=== PATIENT | female | born 1970 | race Caucasian/White ===

== ENCOUNTER 2016-08-01 15:47 | Emergency (ER) | payer MEDICAID ==
[~2016-08-01] VITALS: Ht 157.5 cm; Wt 103.3 kg
[~2016-08-01 15:47] MED LIST: GEMF600T60 PO; GLIP10TA95 PO; HUM100VI8 SQ; HYDR-3498 PO; QUIN10TA PO
[2016-08-01 15:51] VITALS: Ht 157.5 cm; Wt 103.3 kg
[2016-08-01] MEDS ORDERED: SOD CHLORIDE 0.9% 1,000 ML IV STA (19:26)
--- NOTE | 2016-08-01 19:28 | ERD ---
ER Documentation Chief Complaint Date/Time DATE: 08/01/16 TIME: 19:27 Chief Complaint cp started last night HPI 46-year-old female ambulatory to the ED complaining of acute onset of moderate to severe, epigastric and right upper quadrant pain that radiates up to the chest. Pain began last night. Mild nausea but no vomiting, diarrhea or constipation. No hematemesis, hematochezia or melanotic stools. No shortness of breath or cough. Denies leg pain or swelling. No relieving or exacerbating factors. No fevers or chills. Discrepancy with the triage note addressed. ROS All systems reviewed and are negative except as per history of present illness. Medications Home Meds Reported Medications Atorvastatin Calcium* (Atorvastatin Calcium*) 20 Mg Tablet, 20 MG PO DAILY, #30 TAB 08/01/16 Glimepiride* (Glimepiride*) 4 Mg Tablet, 4 MG PO WITH BREAKFAST, TAB 08/01/16 Lisinopril* (Lisinopril*) 40 Mg Tablet, 40 MG PO DAILY, #30 TAB 08/01/16 Hum Insulin Nph/Reg Insulin Hm (Humulin 70-30 Vial) 100 Units/Ml Vial, 40 UNITS SQ BID, VIAL 02/08/15 Discontinued Reported Medications Gemfibrozil* (Gemfibrozil*) 600 Mg Tablet, 600 MG PO BID, TAB 02/08/15 Glipizide* (Glucotrol*) 10 Mg Tablet, 20 MG PO BID TAKE BEFORE BREAKFAST AND LUNCH 12/30/12 Quinapril Hcl (Accupril) 10 Mg Tablet, 10 MG PO DAILY 12/30/12 Discontinued Scripts Hydrocodone Bit-Acetaminophen* (Carney*) 5-325 Mg Tab, 1 TAB PO Q6 Y for PAIN, # 4 TAB Prov:DAYA KRISHNA MD 02/08/15 Allergies Allergies: Coded Allergies: No Known Allergy (Unverified , 08/01/16) PMhx/Soc Reviewed in chart. As per HPI. History of Surgery: Yes () Anesthesia Reaction: No Hx Neurological Disorder: No Hx Respiratory Disorders: No Hx Cardiac Disorders: Yes (HTN, HIGH CHOLESTEROL) Hx Psychiatric Problems: No Hx Miscellaneous Medical Probl: Yes (dm) Hx Alcohol Use: No Hx Substance Use: No Hx Tobacco Use: No Smoking Status: Never smoker FmHx Mother: [place] at age of 75. Physical Exam Vitals Vital Signs Date Time Temp Pulse Resp B/P Pulse Ox O2 Delivery O2 Flow Rate FiO2 08/01/16 15:51 97.9 112 18 186/91 97 Physical Exam Const: Alert, moderate distress due to pain Head: Atraumatic Eyes: Normal Conjunctiva ENT: Normal External Ears, Nose and Mouth. Neck: Full range of motion. No JVD Resp: Clear to auscultation bilaterally Cardio: Regular rate and rhythm, no murmurs Abd: Soft, obese, right upper quadrant tenderness no rebound or guarding. Skin: No petechiae or rashes Back: No midline or flank tenderness Ext: No cyanosis, or edema no calf swelling or tenderness Neur: Awake and alert Psych: Normal Mood and Affect Result Diagram: 08/01/16193408/01/161934 Results 24 hrs Laboratory Tests Test 08/01/16 19:35 08/01/16 20:22 Activated Partial Thromboplast Time 26.1Sec Alanine Aminotransferase (ALT/SGPT) 41IU/L Albumin 4.1g/dl Albumin/Globulin Ratio 1.00 Alkaline Phosphatase 185IU/L Anion Gap 17 Aspartate Amino Transf (AST/SGOT) 32IU/L Basophils # 0.010^3/ul Basophils % 0.5% Beta HCG, Quantitative < 2.4mIU/ml Blood Urea Nitrogen 12mg/dl Calcium Level 9.1mg/dl Carbon Dioxide Level 25mmol/L Chloride Level 102mmol/L Creatinine 0.48mg/dl Direct Bilirubin 0.00mg/dl Eosinophils # 0.010^3/ul Eosinophils % 0.7% Globulin 4.10g/dl Glucose Level 253mg/dl Hematocrit 35.9% Hemoglobin 10.5g/dl INR International Normalized Ratio 1.00 Indirect Bilirubin 0.1mg/dl Lipase 166U/L Lymphocytes # 1.610^3/ul Lymphocytes % 28.2% Mean Corpuscular Hemoglobin 21.6pg Mean Corpuscular Hemoglobin Concent 29.2g/dl Mean Corpuscular Volume 73.9fl Mean Platelet Volume 10.5fl Monocytes # 0.410^3/ul Monocytes % 6.4% Neutrophils # 3.610^3/ul Neutrophils % 63.8% Nucleated Red Blood Cells # 0.010^3/ul Nucleated Red Blood Cells % 0.0/100WBC Platelet Count 36869^3/UL Potassium Level 3.9mmol/L Prothrombin Time 13.2Sec Prothrombin Time Ratio 1.0 Red Blood Count 4.8610^6/ul Red Cell Distribution Width 16.3% Sodium Level 140mmol/L Total Bilirubin 0.1mg/dl Total Protein 8.2g/dl Troponin I < 0.012ng/ml Urine Bilirubin NEGATIVE Urine Clarity CLEAR Urine Color LT. YELLOW Urine Glucose >=1000% Urine Hemoglobin NEGATIVE Urine Ketones TRACE Urine Leukocyte Esterase NEGATIVE Urine Nitrite NEGATIVE Urine Specific [place] 1.015 Urine Total Protein NEGATIVE Urine Urobilinogen 0.2 E.U./dL Urine pH 6.0 White Blood Count 5.610^3/ul Bedside Glucose 200mg/dL Current Medications Medications (Trade) Dose Ordered Sig/Odilia Route PRN Reason Start Time Stop Time Status Last Admin Dose Admin Sodium Chloride (NS) 1,000 ml @ 1,000 mls/hr Q1H STAT IV 08/01/16 19:26 08/01/16 20:25 DC 08/01/16 20:15 Morphine Sulfate (morphine) 4 mg ONCE STAT IV 08/01/16 19:56 08/01/16 19:57 DC 08/01/16 20:59 Ondansetron HCl (Zofran Inj) 4 mg ONCE STAT IV 08/01/16 19:56 08/01/16 19:57 DC 08/01/16 20:59 EKG: TIME: 15:55. Sinus tachycardia. Ventricular 107. Normal VA QRS. Septal Q waves in leads V1 and V2. No acute ST segment elevation or depression. No axis deviation or ectopy. EP Interpretation: Abnormal EKG. IMAGING: PROCEDURE: US right upper quadrant CLINICAL INDICATION: Abdominal pain TECHNIQUE: Multiple real-time images were acquired of the patient's right upper abdomen utilizing a high resolution transducer. Technical note: The examination is suboptimal, limited by the patient's body habitus COMPARISON: CT abdomen and pelvis 02/08/2015 FINDINGS: Liver: Increased echogenicity compatible with fatty liver replacement without evidence of mass or ductal dilatation. Normal directional blood flow is suggested within the patent main portal vein. The maximum dimension estimated at 15.9 cm . Gallbladder: Multiple mobile echogenic foci with distal acoustic shadowing are present. . the gallbladder wall is mildly thickened at 4.3 mm but there is no evidence of pericholecystic fluid. No sonographic Rodriguez's sign is reported. Common bile duct: Normal; 2.8 mm. There is no evidence for choledocholithiasis. Right Kidney: Normal; maximum length measured at approximately 11.5 cm. Pancreas: Obscured by bowel gas. RPTAT:HJJR IMPRESSION: 1. Limited examination because of body habitus. 2. Cholelithiasis and mild gallbladder wall thickening without pericholecystic fluid, report of a sonographic Rodriguez's sign or ductal dilatation to suggest cholecystitis. Gallstones are visible on the prior CT of 02/08/2015. 3. Hepatic steatosis. Physician Brittney Date Time Electronically viewed and signed by Physician Brittney on 08/01/2016 19:58 JR/ Procedures/MDM DOCUMENTS REVIEWED: ED nurse, prior ED, prior ED COURSE: Normal saline 1 L. REEXAMINATION/REEVALUATION: Time:22:30. Doing well. Pain resolved. Abdomen soft nontender. MEDICAL DECISION MAKIN-year-old female with history of diabetes and hypertension ambulatory to the ED complaining of acute onset of moderate to severe, epigastric and right upper quadrant pain last night. Right upper quadrant tenderness and ultrasound consistent with cholelithiasis without evidence of cholecystitis. No pancreatitis. No rebound, guarding or other signs of peritonitis. Right lower quadrant tenderness or signs of appendicitis. Mild hyperglycemia but no DKA. In triage apparently complained of chest pain but this is radiating pain from her abdomen. Pneumonia, pneumothorax ACS, pulmonary embolism and aortic dissection considered. Previous CAT scan in 2015 also showed cholelithiasis and she admits to having this pain previously. No pancreatitis per stable for discharge with appropriate analgesics and outpatient follow-up as counseled. Counseled patient of regarding diagnostic workup, diagnosis and need for followup. Understands to return to ED if symptoms recur, worsen or any other concerns. Departure Diagnosis: Primary Impression: Acute abdominal pain in right upper quadrant Additional Impressions: Cholelithiasis Cholelithiasis location: gallbladder Cholecystitis presence: without cholecystitis Biliary obstruction: without biliary obstruction Qualified Code : K80.20 - Calculus of gallbladder without cholecystitis without obstruction Biliary colic Condition: Stable SUZAN SILVA MD Aug 01, 2016 19:28
[2016-08-01 19:42] LABS: ADD SCAN DIFF NO
[2016-08-01 19:44] LABS: BASOPHILS % 0.5 % (0.0-2.0); EOSINOPHILS % 0.7 % (0.0-7.0); HEMATOCRIT 35.9 % (37.0-47.0); HEMOGLOBIN 10.5 g/dl (12.0-16.0); LYMPHOCYTES # 1.6 10^3/ul (0.8-2.9); LYMPHOCYTES % 28.2 % (15.0-51.0); MEAN CORPUSCULAR HEMOGLOBIN 21.6 pg (29.0-33.0); MEAN CORPUSCULAR HGB CONC 29.2 g/dl (32.0-37.0); MEAN CORPUSCULAR VOLUME 73.9 fl (82.0-101.0); MEAN PLATELET VOLUME 10.5 fl (7.4-10.4); MONOCYTE # 0.4 10^3/ul (0.3-0.9); MONOCYTES % 6.4 % (0.0-11.0); NEUTROPHIL # 3.6 10^3/ul (1.6-7.5); NEUTROPHILS % 63.8 % (39.0-77.0); PLATELET COUNT 279 10^3/UL (140-415); RED BLOOD COUNT 4.86 10^6/ul (4.20-5.40); RED CELL DISTRIBUTION WIDTH 16.3 % (11.5-14.5); WHITE BLOOD COUNT 5.6 10^3/ul (4.8-10.8)
[2016-08-01 19:50] LABS: ADD UMIC NO; URINE BILIRUBIN (Dip) NEGATIVE (NEGATIVE); URINE BLOOD (Dip) NEGATIVE (NEGATIVE); URINE COLOR LT. YELLOW (YELLOW); URINE GLUCOSE (Dip) >=1000 % (NEGATIVE); URINE KETONES (Dip) TRACE (NEGATIVE); URINE LEUKOCYTE ESTERASE (Dip) NEGATIVE (NEGATIVE); URINE NITRITE (Dip) NEGATIVE (NEGATIVE); URINE TOTAL PROTEIN (Dip) NEGATIVE (NEGATIVE); URINE UROBILINOGEN (Dip) 0.2 E.U./dL (0.1-1.0)
[2016-08-01 19:55] LABS: PROTIME 13.2 Sec (12.2-14.2)
[2016-08-01 19:56] LABS: PARTIAL THROMBOPLASTIN TIME 26.1 Sec (25.0-35.0)
[2016-08-01] MEDS ORDERED: ONDANSETRON 4 MG INJ IV STA (19:56)
[2016-08-01] MEDS ORDERED: morphine 4 MG/ML VIAL IV STA (19:56)
--- NOTE | 2016-08-01 19:58 | RADRPT ---
PROCEDURE: US right upper quadrant CLINICAL INDICATION: Abdominal pain TECHNIQUE: Multiple real-time images were acquired of the patient's right upper abdomen utilizing a high resolution transducer. Technical note: The examination is suboptimal, limited by the patient's body habitus COMPARISON: CT abdomen and pelvis 02/08/2015 FINDINGS: Liver: Increased echogenicity compatible with fatty liver replacement without evidence of mass or d uctal dilatation. Normal directional blood flow is suggested within the patent main portal vein. T he maximum dimension estimated at 15.9 cm . Gallbladder: Multiple mobile echogenic foci with distal acoustic shadowing are present. . the gall bladder wall is mildly thickened at 4.3 mm but there is no evidence of pericholecystic fluid. No son ographic Rodriguez's sign is reported. Common bile duct: Normal; 2.8 mm. There is no evidence for choledocholithiasis. Right Kidney: Normal; maximum length measured at approximately 11.5 cm. Pancreas: Obscured by bowel gas. RPTAT:HJJR IMPRESSION: 1. Limited examination because of body habitus. 2. Cholelithiasis and mild gallbladder wall thickening without pericholecystic fluid, report of a so nographic Rodriguez's sign or ductal dilatation to suggest cholecystitis. Gallstones are visible on the prior CT of 02/08/2015. 3. Hepatic steatosis. Physician Brittney Date Time Electronically viewed and signed by Physician Brittney on 08/01/2016 19:58 /
[2016-08-01 20:02] LABS: ALBUMIN 4.1 g/dl (3.3-4.9)
[2016-08-01 20:03] LABS: CHLORIDE 102 mmol/L (97-110); POTASSIUM 3.9 mmol/L (3.5-5.1); SODIUM 140 mmol/L (135-144)
[2016-08-01 20:05] LABS: ANION GAP 17 (8-16); ASPARTATE AMINO TRANSFERASE 32 IU/L (15-46); BILIRUBIN,INDIRECT 0.1 mg/dl (0-1.1); BILIRUBIN,TOTAL 0.1 mg/dl (0.2-1.3); CARBON DIOXIDE 25 mmol/L (21-31); CREATININE 0.48 mg/dl (0.44-1.00)
[2016-08-01 20:06] LABS: ALANINE AMINOTRANSFERASE 41 IU/L (13-69); ALKALINE PHOSPHATASE 185 IU/L (42-121); BLOOD UREA NITROGEN 12 mg/dl (7-20); CALCIUM 9.1 mg/dl (8.4-10.2); GLUCOSE 253 mg/dl (70-220); TOTAL PROTEIN 8.2 g/dl (6.1-8.1)
[2016-08-01 20:31] LABS: TROPONIN-I < 0.012 ng/ml (0.00-0.12)
[2016-08-01] MEDS ORDERED: LISI40TA9 PO (20:38)
[2016-08-01] MEDS ORDERED: ATOR20TA38 PO (20:39)
[2016-08-01] MEDS ORDERED: GLIM4TAB PO (20:39)
[2016-08-01] MEDS ORDERED: TRAM50TA2 PO (23:19)
[2016-08-01] MEDS ORDERED: ONDA4TAB8 PO (23:19)
[2016-08-01 23:57] VITALS: BP 118/66; PULSE 84; RESP 18
== END 2016-08-01 23:57 | disposition home or self-care (01) ==
LOC: E/R 15:47
DX: R10.11 Right upper quadrant pain (principal); R11.0 Nausea; I10 Essential (primary) hypertension; E11.9 Type 2 diabetes mellitus without complications; K80.70 Calculus of gallbladder and bile duct without cholecystitis without obstruction; Z79.84 Long term (current) use of oral hypoglycemic drugs; Z79.4 Long term (current) use of insulin
CPT/HCPCS: 36415; 76705; 80053; 81003; 82962; 83690; 84484; 84702; 85025; 85610; 85730; 93005; 96374; 96375; J2270; J2405; J7030; Z7502